=== PATIENT | male | born 1980 | race Caucasian/White ===

== ENCOUNTER 2017-09-06 00:16 | Emergency (ER) | payer MEDICAID ==
[~2017-09-06] VITALS: Ht 182.9 cm; Wt 81.8 kg
[2017-09-06 02:35] VITALS: BP 148/80
== END 2017-09-06 05:31 | disposition left against medical advice (07) ==
LOC: EMS 00:17
DX: S43.102A Unspecified dislocation of left acromioclavicular joint, initial encounter (principal); X58.XXXA Exposure to other specified factors, initial encounter; Y93.89 Activity, other specified; Y92.89 Other specified places as the place of occurrence of the external cause; Y99.8 Other external cause status
CPT/HCPCS: 99284